=== PATIENT | female | born 1990 | race Caucasian/White ===

== ENCOUNTER 2019-04-21 22:30 | Emergency (ER) | payer SELFPAY ==
[2019-04-21 22:33] VITALS: BP 166/104; PULSE 94; RESP 20; TEMP 36.4; O2SAT 98
--- NOTE | 2019-04-21 22:43 | ED.URI ---
HPI - URI/Sore Throat General Chief Complaint: Upper Respiratory Infection Stated Complaint: cough, ear ache Time Seen by Provider: 04/21/19 22:43 Source: patient and RN notes reviewed Mode of arrival: ambulatory Limitations: no limitations History of Present Illness MD elicited complaint: cough (3 days) and other (and ear ache) Pertinent past history: asthma Onset (ago): day(s) (3) Consistency: intermittent Severity: moderate Able to tolerate fluids by mouth: Yes Exacerbating factors: swallowing Relieving factors: nothing Associated symptoms: fever, chills, sore throat (Scratchy) and ear pain (for 1 day) Treatments prior to arrival: cold medicine Related Data Allergies Allergy/AdvReac Type Severity Reaction Status Date / Time clarithromycin Allergy Unknown Hives / Unverified 10/08/15 11:26 Red Face Review of Systems Eyes: Eyes: Reports no additional eye complaints ENT: Reports system reviewed and no additional complaints, except as documented Cardiovascular: Cardiovascular: Reports no additional cardiovascular complaints Respiratory: Respiratory: Reports no additional respiratory complaints Gastrointestinal: Gastrointestinal: Denies diarrhea, Denies nausea and Denies vomiting Musculoskeletal: Musculoskeletal: Reports no additional musculoskeletal complaints Hematologic/Lymphatic: Hematologic/Lymphatic: Reports no additional hematologic/lymphatic complaints Allergic/Immunologic: Allergic/Immunologic: Reports no additional allergic/immunologic complaints PMFSH Past Medical History Medical History (Updated 04/21/19 @ 23:04 by Juan R Garibay MD) Asthma Surgical History Surgical History (Updated 04/21/19 @ 22:53 by Juan R Garibay MD) No history of previous surgery Social History Social History (Updated 04/21/19 @ 22:54 by Juan R Garibay MD) Smoking status: Current every day smoker Alcohol intake: never Substance use: never Gender identity (if verbalized by the patient): Female Exam Const: General: healthy appearing and no acute distress Nutritional Appearance: well nourished Orientation/consciousness: patient oriented x3 Other: Female nurse in room during examination. HENMT: Head: normal to inspection Ears: EAC's normal and TM abnormal erythematous, with loss of landmarks on the right and perforated with bloody discharge on the right General nose exam: Normal external nose present and Normal nares present Mouth: Yes moist mucous membranes Throat: posterior oropharynx normal and uvula midline Eyes: Conjunctivae: conjunctivae normal Pupils: Equal, round and reactive pupils present EOM: EOMs intact bilaterally Neck: Neck: normal visual inspection and no lymphadenopathy Chest: Chest palpation & inspection: normal inspection of the chest Resp: Effort & Inspection: normal respiratory effort Auscultation: wheezes scattered wheezes and posterior Cardio: Rate: regular rate Rhythm: regular rhythm GI: GI Palp: Yes Soft to palpation and No Tenderness to palpation present (GI) Auscultation: normal bowel sounds Back/Spine/Pelvis: Cervical Spine: cervical ROM normal Thoracic/Lumbar Spine: thoraco-lumbar ROM normal Skin: General skin exam: normal color Rashes: no rashes Neuro: General: patient oriented x3, moves all extremities and no focal motor deficits Speech: normal speech Extrem: General: normal to inspection and no clubbing, cyanosis or edema Psych: Appearance: grossly normal and well kempt Mental Status: mental status grossly normal Affect: normal affect Attitude: cooperative Thought content: Yes Normal thought content present Course Vital Signs Vital signs: Vital Signs Temperature 36.4 C 04/21/19 22:33 Pulse Rate 94 04/21/19 22:33 Respiratory Rate 20 04/21/19 22:33 Blood Pressure 166/104 H 04/21/19 22:33 Pulse Oximetry 98 04/21/19 22:33 Temperature 36.4 C 04/21/19 22:33 Pulse Rate 83 04/21/19 23:08 Respiratory Rate 20 04/21/19
[2019-04-21 23:08] VITALS: BP 154/106; PULSE 83; O2SAT 97
[2019-04-21] MEDS: AMOXICILLIN/CLAVULANATE K 875-125 MG TAB 1 TABLET PO (23:08)
--- NOTE | 2019-04-21 23:10 | PC.NURSE ---
Dr Garibay aware of BP 154/106. Instructed to inform pt to f/u with PMD re: elevated BP.
== END 2019-04-21 23:15 | disposition home or self-care (01) ==
PROVIDERS: Emergency Provider Emergency Medicine; PCP Family Medicine
DX: J06.9 Acute upper respiratory infection, unspecified (principal); H66.011 Acute suppurative otitis media with spontaneous rupture of ear drum, right ear; F17.200 Nicotine dependence, unspecified, uncomplicated
CPT/HCPCS: 99283; A9270

== ENCOUNTER 2024-12-19 10:08 | Emergency (ER) | payer OTHER, SELFPAY ==
[2024-12-19] VITALS (7 sets, daily range): BP systolic 128–183; BP diastolic 82–135; PULSE 18–93; RESP 16–80; TEMP 36.6; O2SAT 97–100
--- NOTE | ~2024-12-19 | CT_ITS ---
EXAMINATION: CT facial bones w con DATE: 12/19/2024 11:08 INDICATION: Periorbital cellulitis TECHNIQUE: Computed tomography (CT) of the facial bones and maxillofacial region was performed without intravenous contrast. Coronal reconstructions were obtained. Automated exposure control and iterative reconstruction technique were employed. The dose-length product was 288.72 mGy-cm. COMPARISON: None. FINDINGS: Left periorbital and pre malar thickening and subcutaneous edema consistent with cellulitis. No post septal inflammatory stranding to suggest intraorbital cellulitis. Orbits are otherwise normal. No abscess. Paranasal sinuses are clear with patent bilateral ostiomeatal units. Mastoid air cells and middle ear cavities are clear. Cervical soft tissues are unremarkable. No pathologically enlarged cervical lymphadenopathy. Likely positional mild reversal of the normal cervical lordosis. Bones are otherwise unremarkable. IMPRESSION: 1. Left periorbital and pre malar cellulitis with no intraorbital cellulitis or abscess. Reviewed, dictated and finalized at location A. NESS SUPPORT LIAISON
--- NOTE | 2024-12-19 10:15 | ED_ITS ---
HPI - General Adult General Chief complaint: Skin/Abscess/Foreign Body Stated complaint: pain, redness and sore under left eye Time Seen by Provider: 12/19/24 10:14 Source: patient Mode of arrival: ambulatory Limitations: no limitations History of Present Illness HPI narrative: PATIENT CAME TO THE ED BY PRIVATE CAR FROM HOME COMPLAINING OF SKIN LESION AT THE LEFT FACE STARTED 8 DAYS AGO, A RED MARTHA, FEW DAYS LATER BLISTER, TODAY BLACK SPOT AT THE CENTER OF ERYTHEMATOUS CHANGES JUST BELOW THE LEVEL OF LEFT EYE. STARTED ON DOXYCYCLINE AND MUPIROCIN 4 DAYS AGO, GETTING WORSE. PATIENT IS NOT DIABETIC, DENIES ANY FEVER, CHILLS, NAUSEA, VOMITING PATIENT IS NOT SURE WHAT IS UNDERLYING CAUSE OF THE SKIN LESION. QUESTIONABLE INSECT BITE, BOIL LIKE LESION. PATIENT DENIES ANY VISUAL ABNORMALITY PAIN DOES NOT GET WORSE WITH EYE MOVEMENT. Related Data Allergies Allergy/AdvReac Type Severity Reaction Status Date / Time clarithromycin Allergy Unknown Hives / Verified 12/19/24 10:22 Red Face Review of Systems 2 Review of Systems: All systems reviewed & are unremarkable except as noted in HPI and below PMFSH Past Medical History Medical History Asthma Surgical History Surgical History No history of previous surgery Social History Social History Smoking status: Current every day smoker Alcohol intake: never Substance use: never Gender identity (if verbalized by the patient): Female Exam 2 Narrative: GENERAL APPEARANCE: WELL-DEVELOPED, WELL-NOURISHED SKIN: NORMAL COLOR. LEFT FACE SHOWING 1 X 0.5 CM BLACK SKIN SURROUNDED BY EXTENSIVE ERYTHEMA, SWELLING, WARMTH INVOLVING THE LEFT LOWER EYELID, TENDER TO TOUCH, NO DISCHARGE HEAD: NORMOCEPHALIC, NONTRAUMATIC EYES: CLEAR CONJUNCTIVA, EYEBALL MOVEMENT INTACT WITHOUT ANY PAIN ENT: OROPHARYNX NORMAL, EARS NORMAL, NOSE NORMAL NECK: SUPPLE, NONTENDER CHEST AND RESPIRATORY: AIRWAY PATENT, NO RESPIRATORY DISTRESS, NO ACCESSORY MUSCLE USE HEART: REGULAR RATE/RHYTHM ABDOMEN: SOFT, NONTENDER, NO ORGANOMEGALY, QUIET BOWEL SOUNDS MUSCULOSKELETAL: NORMAL RANGE OF MOTION, NONTENDER BACK NEUROLOGIC: ALERT AND ORIENTED ?3, TAKE OUT WAITER/WAITRESS IS NORMAL TESTED, NO GROSS MOTOR DEFICIT Course Vital Signs Vital signs: Vital Signs Temperature 36.6 C 12/19/24 10:11 Pulse Rate 93 12/19/24 10:11 Respiratory Rate 16 12/19/24 10:11 Blood Pressure 183/135 H 12/19/24 10:11 Pulse Oximetry 100 12/19/24 10:11 Oxygen Delivery Room Air 12/19/24 10:11 Temperature 36.6 C 12/19/24 10:11 Pulse Rate 93 12/19/24 10:11 Respiratory Rate 16 12/19/24 10:11 Blood Pressure 151/88 H 12/19/24 10:31 Pulse Oximetry 100 12/19/24 10:11 Oxygen Delivery Room Air 12/19/24 10:11 Medical Decision Making MDM Narrative Medical decision making narrative: PATIENT PRESENTS WITH SKIN LESION AND CELLULITIS LEFT FACE 8 DAYS AGO VITAL SIGNS SHOWING BLOOD PRESSURE 183/135 OTHERWISE INSIGNIFICANT PHYSICAL EXAMINATION SHOWING PERIORBITAL CELLULITIS LEFT SIDE DIFFERENTIAL DIAGNOSIS: BACTERIAL INFECTION TYPICALLY STAPHYLOCOCCUS AUREUS OR STREPTOCOCCUS, INSECT BITE, OR TRAUMA/PATIENT DENIED BLOOD WORKUP TODAY INCLUDES CBC, CMP SHOWED GLUCOSE 254, OTHERWISE INSIGNIFICANT ABNORMALITIES CT FACIAL BONE WITH IV CONTRAST TO RULE OUT PERIORBITAL CELLULITIS SHOWED CELLULITIS, NO ABSCESS. PATIENT RECEIVED VANCOMYCIN IV PRIOR TO DISCHARGE DISCHARGED ON AUGMENTIN AND SULFA THE PT WAS DISCHARGED TO HOME.THE PT,S CONDITION UPON DISCHARGE WAS FAIR,EDUCATION WAS PROVIDED TO THE PT IN REFERENCE TO THE FINAL IMPRESSION,DISCHARGE STUDY RESULTS,TREATMENT,PROGNOSIS AND NEED FOR FOLLOW UP . Differential Diagnosis Differential Diagnosis: ABOVE Vital Signs Vital Signs: Vital Signs Temperature 36.6 C 12/19/24 10:11 Pulse Rate 93 12/19/24 10:11 Respiratory Rate 16 12/19/24 10:11 Blood Pressure 183/135 H 12/19/24 10:11 Pulse Oximetry 100 12/19/24 10:11 Oxygen Delivery Room Air 12/19/24 10:11 Temperature 36.6 C 12/19/24 10:11 Pulse Rate 93 12/19/24 10:11 Respiratory Rate 16 12/19/24 10:11 Blood Pressure 151/88 H 12/19/24 10:31 Pulse Oximetry 100 12/19/24 10:11 Oxygen Delivery Room Air 12/19/24 10:11 Lab Data 12/19/24 10:26 12/19/24 10:26 Labs: Lab Results 12/19/24 Range/Units 10:26 WBC 7.7 (4.8-10.8) K/mm3 RBC 4.73 (4.20-5.40) M/mm3 Hgb 14.2 (12.0-15.0) g/dL Hct 41.9 (35.0-49.0) % MCV 88.6 (78.0-102.0) fL MCH 30.0 (27.0-31.0) pg MCHC 33.9 (32-36) g/dL RDW 12.0 (11.6-14.4) % Plt Count 278 (150-420) K/mm3 MPV 9.3 (9.2-11.8) fl Immature Gran % (Auto) 0.5 H (0.0-0.0) % Neut % (Auto) 68.9 (50.0-70.0) % Lymph % (Auto) 22.3 (18.0-42.0) % [place] % (Auto) 6.4 (2.0-11.0) % Eos % (Auto) 1.4 (1.0-6.0) % Baso % (Auto) 0.5 (0.0-1.0) % Lymph # (Auto) 1.71 (1.10-4.50) K/mm3 [place] # (Auto) 0.49 (0.10-0.90) K/mm3 Eos # (Auto) 0.11 (0.02-0.50) K/mm3 Baso # (Auto) 0.04 (0.00-0.10) K/mm3 Abs Immat Gran (auto) 0.04 H (0.00-0.00) K/mm3 Absolute Neuts (auto) 5.28 (1.70-7.20) K/mm3 Absolute Nucleated RBC 0.00 (0.00-0.00) K/mm3 Nucleated RBC % 0.0 (0-0.0) % Sodium 137 (137-145) mmol/L Potassium 4.3 (3.4-5.0) mmol/L Chloride 108 H (98-107) mmol/L Carbon Dioxide 24 (22-30) mmol/L Anion Gap 5 (4-12) mmol/L BUN 10 (7-17) mg/dL Creatinine 0.88 (0.7-1.0) mg/dL Estim Creat Clear Calc 82 ml/min Estimated GFR > 60 (59 - ) Glucose 254 H (65-110) mg/dL Calculated Osmolality 292 (285-295) mOsm/kg Calcium 9.3 (8.4-10.2) mg/dL Total Bilirubin 1.4 H (0.2-1.3) mg/dL AST 54 H (14-36) U/L ALT 62 H (6-35) U/L Alkaline Phosphatase 90 (38-126) U/L Total Protein 6.5 (6.3-8.2) g/dL Albumin 3.9 (3.5-5.1) g/dL Imaging Data Radiologist's impression: Impressions Face CT 12/19/24 11:32 IMPRESSION: 1. Left periorbital and pre malar cellulitis with no intraorbital cellulitis or abscess. Critical Care Time Critical Care Time Critical Care Time: No Discharge Plan Discharge Clinical Impression: Cellulitis Patient Disposition: Home Condition: Stable Instructions: Antibiotic Form, Cellulitis (ED) Additional Instructions: RETURN IF SYMPTOMS ARE WORSENING , CALL YOUR FAMILY PHYSICIAN FOR APPOINTMENT, TAKE TYLENOL, IBUPROFEN NEEDED FOR ACHES AND PAIN, CONTINUE HOME MEDICATIONS. STOP DOXYCYCLINE Patient Language: [place] Prescriptions: New amoxicillin-pot clavulanate [Augmentin] 500-125 mg tablet 1 tablet PO Q8H Qty: 30 0RF sulfamethoxazole-trimethoprim [Bactrim DS] 800-160 mg tablet 1 tablet PO Q12H Qty: 20 0RF No Action ofloxacin 0.3 % drops 10 drop EACH EAR BID 7 Days Qty: 10 0RF amoxicillin-pot clavulanate [Augmentin] 875-125 mg tablet 1 tablet PO Q12H Qty: 20 0RF Follow-up/Referrals: UNKNOWN,DOCTOR [Non-Staff] Stand Alone Forms: Work/School Release IP
[2024-12-19 10:30] LABS: Hematocrit 41.9 % (35.0-49.0); Hemoglobin 14.2 g/dL (12.0-15.0); Immature Granulocyte Percent A 0.5 % (0.0-0.0); Lymphocytes Absolute Auto 1.71 K/mm3 (1.10-4.50); Mean Corpuscular HGB Conc 33.9 g/dL (32-36); Mean Corpuscular Hemoglobin 30.0 pg (27.0-31.0); Mean Corpuscular Volume 88.6 fL (78.0-102.0); Nucleated Red Blood Cells Absolute Auto 0.00 K/mm3 (0.00-0.00); Nucleated Red Blood Cells Perc 0.0 % (0-0.0); Platelet Count Result 278 K/mm3 (150-420); Red Blood Count 4.73 M/mm3 (4.20-5.40); White Blood Count 7.7 K/mm3 (4.8-10.8)
--- NOTE | 2024-12-19 10:40 | PC.NURSE ---
Per erp no blood cultures needed at this time.
[2024-12-19 10:42] LABS: Alanine Aminotransferase 62 U/L (6-35); Albumin Level 3.9 g/dL (3.5-5.1); Alkaline Phosphatase 90 U/L (38-126); Anion Gap 5 mmol/L (4-12); Aspartate Amino Transferase 54 U/L (14-36); Bilirubin,Total 1.4 mg/dL (0.2-1.3); Blood Urea Nitrogen 10 mg/dL (7-17); Calcium 9.3 mg/dL (8.4-10.2); Carbon Dioxide 24 mmol/L (22-30); Chloride 108 mmol/L (98-107); Estimated CRCL calculation 82 ml/min; Estimated Glomerular Filt Rate > 60; Glucose 254 mg/dL (65-110); Osmolality Calculated 292 mOsm/kg (285-295); Potassium 4.3 mmol/L (3.4-5.0); Sodium 137 mmol/L (137-145); Total Protein 6.5 g/dL (6.3-8.2)
[2024-12-19] MEDS: VANCOMYCIN 1,250 MG/NS 250 ML 1,250 MG/250 ML BAG 200 MG IVPB (10:51)
--- NOTE | 2024-12-19 10:53 | PC.NURSE ---
vancomycin paused, patient going down to CT.
== END 2024-12-19 12:35 | disposition home or self-care (01) ==
PROVIDERS: Emergency Provider Emergency Medicine; Referring Provider Internal Medicine
DX: L03.211 Cellulitis of face (principal); F17.200 Nicotine dependence, unspecified, uncomplicated
CPT/HCPCS: 36415; 70487; 80053; 85025; 96365; 99284; J3373; Q9967